=== PATIENT | male | born 1985 | race Caucasian/White ===

== ENCOUNTER → 2016-10-02 | Outpatient (REF) ==
[~2016-10-02] MED LIST: CEPHALEXIN500 M1 PO; LORTAB 5/500 501 TAB PO; NO HOME MEDICATIONS; PERCOCET 325 MG1 TA2 PO; PHENERGAN W/CO120 ML PO; TAMIFLU 75MG75 MG PO
== END ==
LOC: ZLAB.WCH 16:15
DX: Z01.89 Encounter for other specified special examinations (principal)